=== PATIENT | female | born 1965 | race Caucasian/White ===

== ENCOUNTER 2018-08-04 11:58 | Emergency (ER) | payer BC ==
[2018-08-04 12:15] VITALS: BP 169/109; PULSE 86; TEMP 98.3; BMI 25.0
--- NOTE | 2018-08-04 13:10 | PDOC ---
History of Present Illness - General Chief Complaint: Pain Stated Complaint: back pain Time Seen by Provider: 08/04/18 12:01 History Source: Patient Exam Limitations: No Limitations - History of Present Illness Initial Comments: 08/04/18 13:06 53-year-old female with history of hypertension presents with lower back pain. Approximately one week ago, the patient had a mechanical fall and on her buttocks. Since then she developed a large hematoma in the lower back and subsequent pain. Denies any numbness or weakness. She does have prior history of sciatica at the L1-L2 spine. Denies any numbness or weakness. Denies urinary bowel incontinence or saddle anesthesia. However, patient was sitting yesterday noticed that the pain was worsening to came to the ER. Past History - Past Medical History Allergies/Adverse Reactions: Allergies Allergy/AdvReac Type Severity Reaction Status Date / Time No Known Allergies Allergy Verified 08/04/18 12:01 Home Medications: Ambulatory Orders Krill Oil 500 mg PO DAILY capsule 01/03/16 Vitamin B Complex 1 each PO DAILY capsule 01/03/16 COPD: No HTN: Yes - Surgical History Abdominal Surgery: Yes (laparoscopy for ovarian cyst) - Suicide/Smoking/Psychosocial Hx Smoking History: Never smoked Hx Alcohol Use: Yes (wine daily) Drug/Substance Use Hx: No Substance Use Type: None Review of Systems - Review of Systems Able to Perform ROS?: Yes Comments:: 08/04/18 13:10 GENERAL/CONSTITUTIONAL: [No fever or chills. No weakness. No weight change.] HEAD, EYES, EARS, NOSE AND THROAT: [No change in vision. No ear pain or discharge. No sore throat.] CARDIOVASCULAR: [No chest pain or shortness of breath.] RESPIRATORY: [No cough, wheezing, or hemoptysis.] GASTROINTESTINAL: [No nausea, vomiting, diarrhea or constipation. No rectal bleeding.] GENITOURINARY: [No dysuria, frequency, or change in urination.] MUSCULOSKELETAL: [No joint or muscle swelling or pain.] SKIN AND BREASTS: Back pain and bruising. NEUROLOGIC: [No headache, vertigo, loss of consciousness, or loss of sensation.] PSYCHIATRIC: [No depression or anxiety.] ENDOCRINE: [No increased thirst. No abnormal weight change.] HEMATOLOGIC/LYMPHATIC: [No anemia, easy bleeding, or history of blood clots.] ALLERGIC/IMMUNOLOGIC: [No hives or skin allergy. No latex allergy.] *Physical Exam - Vital Signs Last Vital Signs Temp Pulse Resp BP Pulse Ox 98.3 F 86 18 169/109 H 100 08/04/18 12:00 08/04/18 12:00 08/04/18 12:00 08/04/18 12:00 08/04/18 12:00 - Physical Exam Comments: 08/04/18 13:10 GENERAL: Awake, alert, and fully oriented, in no acute distress HEAD: No signs of trauma EYES: EOMI, sclera anicteric, conjunctiva clear ENT: Auricles normal inspection, hearing grossly normal, nares patent, Moist mucosa NECK: Normal ROM, supple, BACK: TTP sacral. No step offs. Approximately left lower back and upper buttocks ~10x10 cm ecchymosis and tenderness. EXTREMITIES: Normal range of motion, no edema. No clubbing or cyanosis. No cords, erythema, or tenderness NEUROLOGICAL: Cranial nerves II through XII grossly intact. Normal speech, normal gait SKIN: Warm, Dry, normal turgor, no rashes or lesions noted. ED Treatment Course - RADIOLOGY Radiology Studies Ordered: Category Date Time Status PELVIS [RAD] Stat Radiology 08/04/18 12:01 Taken SPINE-LUMBAR SACRAL [RAD] Stat Radiology 08/04/18 12:01 Taken SOFT TISSUE CHEST AND BACK US [US] Stat Ultrasound 08/04/18 12:01 Taken Medical Decision Making - Medical Decision Making 08/04/18 13:11 Vital Signs Temp Pulse Resp BP Pulse Ox 98.3 F 86 18 169/109 H 100 08/04/18 12:00 08/04/18 12:00 08/04/18 12:00 08/04/18 12:00 08/04/18 12:00 I suspect the patient likely has a large hematoma and a bruised tailbone. However, we'll obtain x-rays to rule out fractures. 08/04/18 13:48 Xray is negative for fracture. I suspect hematoma and musculoskeletal pain. Supportive care. Follow up with PMD. *DC/Admit/Observation/Transfer Diagnosis at time of Disposition: Back pain Qualifiers: Back pain location: low back pain Chronicity: unspecified Back pain laterality : unspecified Sciatica presence: without sciatica Qualified Code(s): M54.5 - Low back pain - Discharge Dispostion Disposition: HOME Condition at time of disposition: Stable - Referrals - Patient Instructions Printed Discharge Instructions: DI for Low Back Pain Additional Instructions: Your xray is negative for fracture. Your bruising may take several weeks before your symptoms improve. Please follow up with your doctor. - Post Discharge Activity
== END 2018-08-04 13:58 | disposition home or self-care (01) ==
LOC: FER 11:58
DX: M54.5 Low back pain (principal); W18.39XA Other fall on same level, initial encounter; Y93.89 Activity, other specified; Y92.9 Unspecified place or not applicable; I10 Essential (primary) hypertension
CPT/HCPCS: 72100-TC-FY; 72170-TC-FY; 99282-25